=== PATIENT | female | born 1970 | race Caucasian/White ===

== ENCOUNTER 2023-10-05 10:15 | Day surgery (SDC) | payer BC, OTHER ==
[~2023-10-05 10:15] MED LIST: Acetaminophen 325 MG Tab PO PRN; Acetaminophen/Codeine 300-30 MG Tab PO PRN; Ondansetron 4 MG/2 ML SDV IVPUSH PRN
[2023-10-05] MEDS: Sodium Chloride 0.9% 10 ML Syringe FLUSH PRN (10:40)
[2023-10-05] MEDS: Proparacaine 0.5% Ophth Soln 15 ML Bottle EYERT ONE ×2 (10:41→11:12)
[2023-10-05] MEDS: Povidone-Iodine 5% Sterile Ophth Soln 30 ML Bottle EYERT ONE ×2 (10:42→11:14)
[2023-10-05] MEDS: Moxifloxacin 0.5% Ophth Soln 3 ML Bottle EYERT ONE (10:42)
[2023-10-05] MEDS: Tropicamide 1% Ophth Soln 15 ML Bottle EYERT ONE (10:43)
[2023-10-05] MEDS: Timolol Maleate 0.5% Ophth Soln 5 ML Bottle EYERT ONE (10:43)
[2023-10-05] MEDS: Phenylephrine 10% Ophth Soln 5 ML Bot EYERT ONE (10:43)
[2023-10-05] MEDS: Cataract Ophth Solution EYERT ONE (10:44)
[2023-10-05] MEDS: Lidocaine 1% 30 ML SDV ONE (11:18)
[2023-10-05] MEDS: Vancomycin 500 MG SDV EYERT ONE ×2 (11:19→11:24)
[2023-10-05] MEDS: Apraclonidine 0.5% Ophth Soln 5 ML Bot EYERT ONE ×2 (11:19→11:24)
[2023-10-05] MEDS: Diclofenac Sodium 0.1% Ophth Soln 5 ML Bottle EYERT ONE ×2 (11:20→11:25)
[2023-10-05] MEDS: Dexamethasone/Neomycin/Polymyxin B Ophth Oint 3.5 GM Tube EYERT ONE (11:21)
== END 2023-10-05 12:00 | disposition home or self-care (01) ==
LOC: DL.SDS 10:15
PROVIDERS: ATTEND Ophthalmology
DX: E11.36 Type 2 diabetes mellitus with diabetic cataract (principal); H25.811 Combined forms of age-related cataract, right eye; I10 Essential (primary) hypertension; E78.5 Hyperlipidemia, unspecified; Z79.84 Long term (current) use of oral hypoglycemic drugs; Z79.899 Other long term (current) drug therapy
CPT/HCPCS: A9270-GY; J3370; J3490

== ENCOUNTER 2023-11-23 08:59 | Day surgery (SDC) | payer BC, OTHER ==
[~2023-11-23 08:59] MED LIST changes: +Cataract Ophth Solution EYELF ONE; +Dexamethasone 4 MG/ML SDV ONE; +Moxifloxacin 0.5% Ophth Soln 3 ML Bottle EYELF ONE; +Phenylephrine 10% Ophth Soln 5 ML Bot EYELF ONE; +Povidone-Iodine 5% Sterile Ophth Soln 30 ML Bottle EYELF ONE; +Proparacaine 0.5% Ophth Soln 15 ML Bottle EYELF ONE; +Proparacaine 0.5% Ophth Soln 15 ML Bottle ONE; +Sodium Chloride 0.9% 10 ML Syringe FLUSH PRN; +Timolol Maleate 0.5% Ophth Soln 5 ML Bottle EYELF ONE; +Tropicamide 1% Ophth Soln 15 ML Bottle EYELF ONE
[2023-11-23] MEDS ORDERED: Ondansetron 4 MG/2 ML SDV IVPUSH PRN (09:00)
[2023-11-23] MEDS ORDERED: Acetaminophen/Codeine 300-30 MG Tab PO PRN (09:00)
[2023-11-23] MEDS ORDERED: Acetaminophen 325 MG Tab PO PRN (09:00)
[2023-11-23] MEDS: Sodium Chloride 0.9% 10 ML Syringe FLUSH PRN (09:31)
[2023-11-23] MEDS: Moxifloxacin 0.5% Ophth Soln 3 ML Bottle EYELF ONE (09:32)
[2023-11-23] MEDS: Proparacaine 0.5% Ophth Soln 15 ML Bottle EYELF ONE ×2 (09:32→09:47)
[2023-11-23] MEDS: Povidone-Iodine 5% Sterile Ophth Soln 30 ML Bottle EYELF ONE ×2 (09:33→09:47)
[2023-11-23] MEDS: Tropicamide 1% Ophth Soln 15 ML Bottle EYELF ONE (09:34)
[2023-11-23] MEDS: Phenylephrine 10% Ophth Soln 5 ML Bot EYELF ONE (09:35)
[2023-11-23] MEDS: Timolol Maleate 0.5% Ophth Soln 5 ML Bottle EYELF ONE (09:35)
[2023-11-23] MEDS: Cataract Ophth Solution EYELF ONE (09:35)
[2023-11-23] MEDS: Dexamethasone/Neomycin/Polymyxin B Ophth Oint 3.5 GM Tube EYELF ONE (09:47)
[2023-11-23] MEDS: Diclofenac Sodium 0.1% Ophth Soln 5 ML Bottle EYELF ONE (09:47)
[2023-11-23] MEDS: Apraclonidine 0.5% Ophth Soln 5 ML Bot EYELF ONE (09:47)
[2023-11-23] MEDS: Lidocaine 1% 30 ML SDV ONE (09:55)
[2023-11-23] MEDS: Vancomycin 500 MG SDV EYELF ONE (09:55)
== END 2023-11-23 10:35 | disposition home or self-care (01) ==
LOC: DL.SDS 08:59
PROVIDERS: ATTEND Ophthalmology
DX: E11.36 Type 2 diabetes mellitus with diabetic cataract (principal); H25.812 Combined forms of age-related cataract, left eye; E78.5 Hyperlipidemia, unspecified; I10 Essential (primary) hypertension; Z79.899 Other long term (current) drug therapy; Z79.84 Long term (current) use of oral hypoglycemic drugs
CPT/HCPCS: 66984; A9270; C1780; J3370; J3490